=== PATIENT | female | born 1975 | race Two or more races ===

== ENCOUNTER → 2017-11-29 | Day surgery (SDC) | payer OTHER ==
[~2017-11-29] MED LIST: ANESTHESIA TRAY IN PYXIS 1 EA TRAY MC ONE; EPINEPHRINE (1:1000) MDV 30 MG/30ML VIAL ONE; FENTANYL PF 100MCG/2ML AMPUL ONE; LIDOCAINE 0.5% HCL 50 ML VIAL ONE; MIDAZOLAM HCL 2 MG/2ML VIAL ONE; ROCURONIUM BROMIDE 50 MG/5 ML ONE; methylPREDNISolone ACETATE 80 MG/ML VIAL ONE
== END | disposition home or self-care (01) ==
LOC: DS 05:04 → UNDOADMIN 05:05 → MEDSG2 05:05
PROVIDERS: ATTEND Specialist
DX: M75.42 Impingement syndrome of left shoulder (principal); M65.812 Other synovitis and tenosynovitis, left shoulder; F41.9 Anxiety disorder, unspecified
CPT/HCPCS: 84703-TC; 88304-TC; 88305-TC; 88311-TC; A4217; J0171; J0690; J1040; J1100; J1885; J2250; J2405; J2704; J3010; J3490